=== PATIENT | male | born 1980 | race Two or more races ===

== ENCOUNTER 2019-11-08 19:55 | Emergency (ER) | payer SELFPAY ==
[~2019-11-08] VITALS: Ht 167.6 cm; Wt 78.7 kg
[2019-11-08 20:08] VITALS: Ht 167.6 cm; Wt 78.7 kg
[2019-11-08 23:28] VITALS: BP 120/68
== END 2019-11-08 23:28 | disposition home or self-care (01) ==
LOC: ED 19:55
DX: T15.01XA Foreign body in cornea, right eye, initial encounter (principal); W45.8XXA Other foreign body or object entering through skin, initial encounter; Y93.89 Activity, other specified; Y92.89 Other specified places as the place of occurrence of the external cause; Y99.8 Other external cause status